=== PATIENT | male | born 1975 | race Caucasian/White ===

== ENCOUNTER 2017-01-01 09:19 | Day surgery (SDC) | payer OTHER ==
[2017-01-01] VITALS (8 sets, daily range): BP systolic 98–141; BP diastolic 51–93; PULSE 68–89; RESP 16–20; TEMP 97.7–97.9; O2SAT 93–100
[~2017-01-01] VITALS: Ht 177.8 cm; Wt 82.7 kg
[~2017-01-01 09:19] MED LIST: FLUT50SP EACH NARE; PRAV20TA2 PO; XANA2TAB PO
[2017-01-01] MEDS ORDERED: MIDAZOLAM HCL 5 MG/5 ML VIAL ONE ×2 (10:07→10:55)
[2017-01-01] MEDS ORDERED: fentaNYL CITRATE 250 MCG/5 ML AMP ONE ×2 (10:07→10:56)
[2017-01-01] MEDS ORDERED: SODIUM CHLOR 0.9% 1000 ML IV SCH (10:15)
[2017-01-01] MEDS ORDERED: LIDOCAINE 1%/EPINEPHrine 1:100,000 SOLN 20 ML VIAL ONE (10:38)
[2017-01-01] MEDS ORDERED: ALBUMIN HUMAN 25% 25 GM/100 ML BAGP IV ONE (10:45)
[2017-01-01] MEDS ORDERED: HYDROmorphone HCL 2 MG TAB PO PRN ×2 (11:15→11:30)
--- NOTE | 2017-01-01 13:54 | RADRPT ---
EXAM DATE/TIME: 01/01/2017 10:51 [facility] COMPARISON: No previous studies available for comparison. INDICATIONS : Elevated liver enzymes. SEDATION TIME: 30 minutes BIOPSY SITE: Right upper quadrant MEDICATION(S): 1.) 10 mg midazolam (Versed) IV 2.) 400 mcg fentanyl (Sublimaze) IV DEVICE(S): 1.) 18 gauge BioPince needle MEDICAL HISTORY : None. SURGICAL HISTORY : None. ENCOUNTER: Initial ACUITY: 1 day PAIN SCORE: 0/10 LOCATION: Right upper quadrant A total of one core specimen(s) were obtained and sent to the laboratory for pathologic evaluation. PROCEDURE: 1. CT guided liver biopsy. Prior to the procedure informed consent was obtained. Any appropriate prior imaging studies were rev iewed. Using automated exposure control and adjustment of the mA and/or kV according to patient size, radiat ion dose was kept as low as reasonably achievable to obtain optimal diagnostic quality images. The site was prepped in a sterile fashion. Full sterile technique was used, including cap, mask, mega rile gloves and gown and a large sterile sheet. Hand hygiene and 2% chlorhexidine and/or betadine/al cohol prep was utilized per protocol for cutaneous antisepsis. The skin and subcutaneous tissues wer e infiltrated with local anesthetic solution. With CT guidance the previously identified target was localized. Biopsy was performed using the presc ribed needle as above. Adequate hemostasis was obtained with compression at the puncture site. Follow-up CT scan reveals no hemorrhage. The patient tolerated the procedure well and there were no complications. The patient was returned to the Radiology Outpatient Unit in stable condition. CONCLUSION: Uncomplicated CT guided biopsy for function. Lam Foster MD FACR on January 01, 2017 at 13:52 Board Certified Radiologist. This report was verified electronically.
== END 2017-01-01 15:05 | disposition home or self-care (01) ==
LOC: HRAD 09:19 → HRIP 09:38 → HRAD 15:05
DX: R74.8 Abnormal levels of other serum enzymes (principal); K75.81 Nonalcoholic steatohepatitis (NASH)
CPT/HCPCS: 47000; 77012; 88307; 88313; J2250; J3010

== ENCOUNTER 2017-12-29 19:17 | Emergency (ER) | payer OTHER ==
[~2017-12-29] VITALS: Ht 177.8 cm; Wt 73.3 kg
[2017-12-29] MEDS ORDERED: GADODIAMIDE PF 287 MG/ML 5 ML VIAL (for RAD MRI) IVCONTRAST ONE (19:18)
[2017-12-29 19:21] VITALS: BP 119/59; PULSE 64; RESP 18; TEMP 98.8; O2SAT 99
[2017-12-29] MEDS ORDERED: SODIUM CHLOR 0.9% 1000 ML INJ 1,000 ML IV ONE (19:45)
[2017-12-29 19:55] VITALS: BP 139/78; PULSE 57; O2SAT 97
--- NOTE | 2017-12-29 20:00 | PD ---
HPI Chief Complaint: Numbness/Tingling Time Seen by Provider: 19:26 Travel History International Travel<30 days: No Contact w/Intl Traveler<30days: No Traveled to known affect area: No History of Present Illness HPI The patient is a 42-year-old male who presents to the emergency department for numbness and tingling to the lower legs. The patient states his symptoms started 1 week ago when he developed numbness on the right lower extremity radiate from the hip to the knee. The patient felt like the numbness was located "deep in my leg ". The patient states he then developed bilateral lower extremity numbness and tingling 1 hour prior to arrival. The patient states he goes down both lower extremities to the feet. The patient also feels like he is going to "pass out", and feels like his mentation is not clear. The patient's did call the emergency department and states that the patient has had increasing confusion and appears to be in a "fog "according to the . The patient does have a history of cirrhosis but denies any illicit drug use or alcohol use currently. He denies any fever, chills, sweats, chest pain, shortness of breath, palpitations, nausea, vomiting, or abdominal pain. The patient does take Xanax as needed for anxiety, but denies taking Xanax prior to arrival. He denies any alcohol use prior to arrival. The patient states he was able to drive to the emergency department. He denies any weakness to lower extremities and denies any urinary or fecal incontinence. Symptoms are moderate. They have been progressing. His current primary physician is Dr. Lemos. [facility] Past Medical History Bipolar Disorder: Yes Anxiety: Yes Cancer: No Cardiovascular Problems: No Diabetes: No Diminished Hearing: No Endocrine: No Genitourinary: No Hepatitis: No Hiatal Hernia: No Musculoskeletal: Yes (HX OF FX FEMUR) Neurologic: Yes (STATES HX OF MULTIPLE CONCUSSIONS) Psychiatric: No Reproductive: No Respiratory: No Thyroid Disease: No Past Surgical History Abdominal Surgery: No AICD: No Cardiac Surgery: No Ear Surgery: No Endocrine Surgery: No Eye Surgery: No Genitourinary Surgery: No Gynecologic Surgery: No Joint Replacement: No Oral Surgery: No Pacemaker: No Thoracic Surgery: No Social History Alcohol Use: Yes (2-3 TIMES A WEEK.) Tobacco Use: Yes (1PPD) Substance Use: No Allergies-Medications (Allergen,Severity, Reaction): Coded Allergies: No Known Allergies (Verified Adverse Reaction, Unknown, 12/29/17) Reported Meds & Prescriptions Reported Meds & Active Scripts Active Reported Xanax Xr 24 HR (Alprazolam) 2 Mg Tab 1 Tab PO DAILY Take tablet intact, preferably in the morning. Review of Systems Except as stated in HPI: all other systems reviewed are Neg General / Constitutional: No: Fever, Chills HENT: No: Headaches, Lightheadedness Cardiovascular: No: Chest Pain or Discomfort Respiratory: No: Shortness of Breath Gastrointestinal: No: Nausea, Vomiting, Abdominal Pain Genitourinary: No: Incontinence Musculoskeletal: No: Myalgias, Arthralgias, Weakness Neurologic: Positive: Change in Mentation, Paresthesia, Sensory Disturbance, No : Focal Abnormalities, Headache Physical Exam Narrative GENERAL: Awake, alert, somewhat confused 42-year-old male who appears his stated age and is in no acute respiratory distress. SKIN: Focused skin assessment warm/dry. HEAD: Atraumatic. Normocephalic. EYES: Pupils equal and round. Pupils are 3 mm bilateral and reactive. EOMs are intact. ENT: No nasal bleeding or discharge. Mucous membranes pink and moist. NECK: Trachea midline. No JVD. No meningeal signs. CARDIOVASCULAR: Regular rate and rhythm. No murmur appreciated. Heart rate in the 70s. RESPIRATORY: No accessory muscle use. Clear to auscultation. Breath sounds equal bilaterally. GASTROINTESTINAL: Abdomen soft, non-tender, nondistended. No rebound tenderness. MUSCULOSKELETAL: No obvious deformities. No clubbing. No cyanosis. No edema. Flexion of the great toes bilateral 5 out of 5. Plantarflexion is 5 out of 5. Dorsiflexion is 5 out of 5. Extension of knees bilateral is 5 out of 5. Flexion the hips bilaterally is 5 out of 5. Positive dorsalis pedal pulses. Examination of the patient's great nails on the toes bilaterally reveals thickened and discolored distal one half the nail, however, the new nail on the proximal one half appears clear. NEUROLOGICAL: Awake and alert. No obvious cranial nerve deficits. Motor grossly within normal limits. Normal speech. Patient is oriented to person and place, but did not know the current month or resource development director. He was able to tell me the correct year. Knee DTRs are 2+ and symmetric. Ankle DTRs are 2+ and symmetric. Babinski is downward, sensation is intact to soft touch lower extremities bilaterally. When attempting exam for clonus, afterwards, the patient's right upper leg which shakes several times and stop. Back: No tenderness over the thoracic spine, mild tenderness mid lumbar spine. PSYCHIATRIC: Appears confused. Data Data Last Documented VS Vital Signs Date Time Temp Pulse Resp B/P (MAP) Pulse Ox O2 Delivery O2 Flow Rate FiO2 12/29/17 22:47 111/61 (78) 12/29/17 19:55 57 16 97 Room Air 12/29/17 19:21 98.8 Orders Orders Complete Blood Count With Diff (12/29/17 19:39) Comprehensive Metabolic Panel (12/29/17 19:39) Ct Brain W/O Iv Contrast(Rout) (12/29/17 ) Ammonia (12/29/17 19:39) Troponin I (12/29/17 19:39) Creatine Kinase (Cpk) (12/29/17 19:39) Electrocardiogram (12/29/17 ) Thyroid Stimulating Hormone (12/29/17 19:39) Sodium Chlor 0.9% 1000 Ml Inj (Ns 1000 M (12/29/17 19:45) Drug Screen, Random Urine (12/29/17 20:20) Alcohol (Ethanol) (12/29/17 19:58) Mri L Spine W/O Contrast (12/29/17 ) Mri Brain W&W/O Contrast (12/29/17 ) Gadodiamide Pf Inj (Omniscan Pf Inj) (12/29/17 19:18) Thiamine (Vit B1) (Vitamin B1) (12/29/17 22:30) Labs Laboratory Tests Test 12/29/17 19:58 12/29/17 20:32 White Blood Count 2.6 TH/MM3 Red Blood Count 3.61 MIL/MM3 Hemoglobin 12.4 GM/DL Hematocrit 36.6 % Mean Corpuscular Volume 101.5 FL Mean Corpuscular Hemoglobin 34.4 PG Mean Corpuscular Hemoglobin Concent 33.9 % Red Cell Distribution Width 13.6 % Platelet Count 147 TH/MM3 Mean Platelet Volume 6.7 FL Neutrophils (%) (Auto) 23.7 % Lymphocytes (%) (Auto) 66.6 % Monocytes (%) (Auto) 5.0 % Eosinophils (%) (Auto) 2.3 % Basophils (%) (Auto) 2.4 % Neutrophils # (Auto) 0.6 TH/MM3 Lymphocytes # (Auto) 1.6 TH/MM3 Monocytes # (Auto) 0.1 TH/MM3 Eosinophils # (Auto) 0.1 TH/MM3 Basophils # (Auto) 0.1 TH/MM3 CBC Comment AUTO DIFF Differential Total Cells Counted 100 Neutrophils % (Manual) 27 % Lymphocytes % 66 % Monocytes % 5 % Eosinophils % 2 % Neutrophils # (Manual) 0.7 TH/MM3 Differential Comment FINAL DIFF MANUAL Platelet Estimate LOW Platelet Morphology Comment NORMAL Blood Urea Nitrogen 17 MG/DL Creatinine 0.91 MG/DL Random Glucose 92 MG/DL Total Protein 7.6 GM/DL Albumin 4.1 GM/DL Calcium Level 8.6 MG/DL Alkaline Phosphatase 41 U/L Aspartate Amino Transf (AST/SGOT) 12 U/L Alanine Aminotransferase (ALT/SGPT) 21 U/L Total Bilirubin 0.7 MG/DL Sodium Level 142 MEQ/L Potassium Level 3.7 MEQ/L Chloride Level 109 MEQ/L Carbon Dioxide Level 27.3 MEQ/L Anion Gap 6 MEQ/L Estimat Glomerular Filtration Rate 92 ML/MIN Ammonia LESS THAN 10 MCMOL/L Total Creatine Kinase 117 U/L Troponin I LESS THAN 0.02 NG/ML Thyroid Stimulating Hormone 3rd Gen 1.170 uIU/ML Ethyl Alcohol Level LESS THAN 3 MG/DL Urine Opiates Screen NEG Urine Barbiturates Screen NEG Urine Amphetamines Screen NEG Urine Benzodiazepines Screen POS Urine Cocaine Screen NEG Urine Cannabinoids Screen NEG MDM Medical Decision Making Medical Screen Exam Complete: Yes Emergency Medical Condition: Yes Medical Record Reviewed: Yes Interpretation(s) EKG reveals sinus bradycardia with sinus arrhythmia. Heart rate in the 50s. RSR prime V1. Last Impressions Lumbar Spine MRI 12/29/17 0000 Signed Impressions: Service Date/Time: Friday, December 29, 2017 21:26 - CONCLUSION: Minimal disc dehydration and slight bulge at L2-3. No significant anatomic compromise. Jalil Lyons MD Head CT 12/29/17 0000 Signed Impressions: Service Date/Time: Friday, December 29, 2017 20:08 - CONCLUSION: Normal examination. Jalil Lyons MD MRI of the brain reveals normal examination Laboratory Tests Test 12/29/17 19:58 4/18/18 20:32 White Blood Count 2.6 TH/MM3 Red Blood Count 3.61 MIL/MM3 Hemoglobin 12.4 GM/DL Hematocrit 36.6 % Mean Corpuscular Volume 101.5 FL Mean Corpuscular Hemoglobin 34.4 PG Mean Corpuscular Hemoglobin Concent 33.9 % Red Cell Distribution Width 13.6 % Platelet Count 147 TH/MM3 Mean Platelet Volume 6.7 FL Neutrophils (%) (Auto) 23.7 % Lymphocytes (%) (Auto) 66.6 % Monocytes (%) (Auto) 5.0 % Eosinophils (%) (Auto) 2.3 % Basophils (%) (Auto) 2.4 % Neutrophils # (Auto) 0.6 TH/MM3 Lymphocytes # (Auto) 1.6 TH/MM3 Monocytes # (Auto) 0.1 TH/MM3 Eosinophils # (Auto) 0.1 TH/MM3 Basophils # (Auto) 0.1 TH/MM3 CBC Comment AUTO DIFF Differential Total Cells Counted 100 Neutrophils % (Manual) 27 % Lymphocytes % 66 % Monocytes % 5 % Eosinophils % 2 % Neutrophils # (Manual) 0.7 TH/MM3 Differential Comment FINAL DIFF MANUAL Platelet Estimate LOW Platelet Morphology Comment NORMAL Blood Urea Nitrogen 17 MG/DL Creatinine 0.91 MG/DL Random Glucose 92 MG/DL Total Protein 7.6 GM/DL Albumin 4.1 GM/DL Calcium Level 8.6 MG/DL Alkaline Phosphatase 41 U/L Aspartate Amino Transf (AST/SGOT) 12 U/L Alanine Aminotransferase (ALT/SGPT) 21 U/L Total Bilirubin 0.7 MG/DL Sodium Level 142 MEQ/L Potassium Level 3.7 MEQ/L Chloride Level 109 MEQ/L Carbon Dioxide Level 27.3 MEQ/L Anion Gap 6 MEQ/L Estimat Glomerular Filtration Rate 92 ML/MIN Ammonia LESS THAN 10 MCMOL/L Total Creatine Kinase 117 U/L Troponin I LESS THAN 0.02 NG/ML Thyroid Stimulating Hormone 3rd Gen 1.170 uIU/ML Ethyl Alcohol Level LESS THAN 3 MG/DL Urine Opiates Screen NEG Urine Barbiturates Screen NEG Urine Amphetamines Screen NEG Urine Benzodiazepines Screen POS Urine Cocaine Screen NEG Urine Cannabinoids Screen NEG Differential Diagnosis Differential diagnosis includes tumor, encephalopathy, epidural abscess, heavy metal toxicity, hypokalemia, hypocalcemia, hypercalcemia, hyperkalemia, elevated ammonia level, substance ingestion, Warneke Korsakoff's. Narrative Course IV was established, labs are drawn and sent, and the patient was placed on cardiac telemetry monitoring and continuous pulse oximetry monitoring. EKG was ordered and interpreted. Stat CT of the brain was obtained. MRI of the brain and lumbar spine were ordered. Ammonia level and TSH were sent to lab. CT the brain was unremarkable. MRI of the lumbar spine is unremarkable. Ammonia level is normal. TSH is normal. Electrolytes are unremarkable including calcium and potassium. White count is slightly low at 2.6, hemoglobin is low with an MCV of 102, platelets are slightly low, unsure if this is related to possible alcohol use and/or HIV. Warneke Korsakoff would be another consideration of the patient's differential diagnosis, therefore, the patient was administered thiamine 100 mg orally. MRI of the brain with and without contrast reveals a normal examination. No obvious source of the patient's confusion and paresthesias. The patient was reevaluated at 11:01 AM. The patient's was in the room, she states the patient has had extensive workups over the last 3 years in regards to his neuropathy intermittent confusion. The patient is now oriented 4. He is nonfocal on exam. I will discharge the patient, with a copy of everything, but have advised him to follow -up with neurology. He may benefit from outpatient Diagnosis Primary Impression: Numbness and tingling Patient Instructions: General Instructions Additional Instructions: Take thiamine daily. Follow-up with neurology. He may benefit from outpatient heavy metal testing. Please provide the patient a copy of his MRI results and lab results at discharge. Return if symptoms worsen or progress. Med/Other Pt SpecificInfo: Prescription(s) given Scripts Thiamine (Vitamin B-1) 100 Mg Tab 100 MG PO DAILY for Nutritional Supplement for 30 Days, #30 TAB 0 Refills Prov: Shubham Cruz MD 12/29/17 Disposition: DISCHARGE HOME Condition: Stable Shubham Cruz MD Dec 29, 2017 20:00
[2017-12-29 20:02] LABS: AUTOMATED NEUTROPHIL # 0.6 TH/MM3 (1.8-7.7); BASOPHIL # 0.1 TH/MM3 (0-0.2); BASOPHIL % 2.4 % (0.0-2.0); EOSINOPHIL # 0.1 TH/MM3 (0-0.4); EOSINOPHIL % 2.3 % (0.0-4.0); HEMATOCRIT 36.6 % (39.0-51.0); HEMOGLOBIN 12.4 GM/DL (13.0-17.0); LYMPH % 66.6 % (9.0-44.0); LYMPHOCYTE # 1.6 TH/MM3 (1.0-4.8); MEAN CELL VOLUME 101.5 FL (80.0-100.0); MEAN CORPUSCULAR HEMOGLOBIN 34.4 PG (27.0-34.0); MEAN CORPUSCULAR HGB CONC 33.9 % (32.0-36.0); MEAN PLATELET VOLUME 6.7 FL (7.0-11.0); MONOCYTE # 0.1 TH/MM3 (0-0.9); NEUT % 23.7 % (16.0-70.0); PLATELET COUNT 147 TH/MM3 (150-450); RED BLOOD COUNT 3.61 MIL/MM3 (4.50-5.90); RED CELL DISTRIBUTION WIDTH 13.6 % (11.6-17.2); WHITE BLOOD COUNT 2.6 TH/MM3 (4.0-11.0)
[2017-12-29 20:13] LABS: CHLORIDE 109 MEQ/L (98-107); SODIUM (NA) 142 MEQ/L (136-145)
[2017-12-29 20:16] LABS: CALCIUM 8.6 MG/DL (8.5-10.1)
[2017-12-29 20:17] LABS: ALBUMIN 4.1 GM/DL (3.4-5.0); BICARBONATE 27.3 MEQ/L (21.0-32.0); BLOOD UREA NITROGEN 17 MG/DL (7-18); GLUCOSE,RANDOM 92 MG/DL (74-106)
[2017-12-29 20:20] LABS: ALT (GPT) 21 U/L (12-78); AST (GOT) 12 U/L (15-37); CREATININE 0.91 MG/DL (0.60-1.30); GLOMERULAR FILTRATION RATE 92 ML/MIN (>89)
[2017-12-29 20:21] LABS: LYMPHOCYTES 66 % (9-44); MONOCYTES 5 % (0-8); NEUTROPHIL # MANUAL DIFF 0.7 TH/MM3 (1.8-7.7); POLYS (SEG NEUTROPHILS) 27 % (16-70)
[2017-12-29 20:22] LABS: TOTAL BILIRUBIN ADULT 0.7 MG/DL (0.2-1.0); TOTAL PROTEIN 7.6 GM/DL (6.4-8.2)
[2017-12-29 20:23] LABS: ALKALINE PHOSPHATASE 41 U/L (45-117)
[2017-12-29 20:25] LABS: TROPONIN I LESS THAN 0.02 NG/ML (0.02-0.05)
--- NOTE | 2017-12-29 20:28 | RADRPT ---
EXAM DATE/TIME: 12/29/2017 20:08 [facility] COMPARISON: No previous studies available for comparison. INDICATIONS : Right leg numbness. RADIATION DOSE: 52.64 CTDIvol (mGy) MEDICAL HISTORY : None SURGICAL HISTORY : None. ENCOUNTER: Initial ACUITY: 1 day PAIN SCALE: 0/10 LOCATION: cranial TECHNIQUE: Multiple contiguous axial images were obtained of the head. Using automated exposure control and adj ustment of the mA and/or kV according to patient size, radiation dose was kept as low as reasonably a chievable to obtain optimal diagnostic quality images. DICOM format image data is available electro nically for review and comparison. FINDINGS: CEREBRUM: The ventricles are normal for age. No evidence of midline shift, mass lesion, hemorrhage or acute in farction. No extra-axial fluid collections are seen. POSTERIOR FOSSA: The cerebellum and brainstem are intact. The 4th ventricle is midline. The cerebellopontine angle i s unremarkable. EXTRACRANIAL: The visualized portion of the orbits is intact. SKULL: The calvaria is intact. No evidence of skull fracture. CONCLUSION: Normal examination. Jalil Lyons MD on December 29, 2017 at 20:24 Board Certified Radiologist. This report was verified electronically.
--- NOTE | 2017-12-29 21:58 | RADRPT ---
EXAM DATE/TIME: 12/29/2017 21:26 [facility] COMPARISON: No previous studies available for comparison. INDICATIONS : Myelopathy. Right upper leg numbness. MEDICAL HISTORY : None. SURGICAL HISTORY : Femur sx. ENCOUNTER: Initial ACUITY: 1 day PAIN SCORE: 5/10 LOCATION: Right femur. TECHNIQUE: Multiplanar multisequence MRI of the lumbar spine was performed without contrast. FINDINGS: The most caudal appearing lumbar vertebra is numbered as L5. VERTEBRAE: Homogeneous signal. Normal alignment. CONUS: Normal level and configuration. T12-L1: The thecal sac has a normal diameter. No evidence of disc bulge or protrusion. The neural foramina are patent bilaterally. L1-L2: The thecal sac has a normal diameter. No evidence of disc bulge or protrusion. The neural foramina are patent bilaterally. L2-L3: Slight disc dehydration. Slight annular bulge with minimal broad superimposed dorsal protrusion minim ally indenting ventral thecal sac. No canal or foraminal compromise. L3-L4: The thecal sac has a normal diameter. No evidence of disc bulge or protrusion. The neural foramina are patent bilaterally. L4-L5: The thecal sac has a normal diameter. No evidence of disc bulge or protrusion. The neural foramina are patent bilaterally. L5-S1: The thecal sac has a normal diameter. No evidence of disc bulge or protrusion. The neural foramina are patent bilaterally. CONCLUSION: Minimal disc dehydration and slight bulge at L2-3. No significant anatomic compromise. Jalil Lyons MD on December 29, 2017 at 21:54 Board Certified Radiologist. This report was verified electronically.
[2017-12-29] MEDS ORDERED: THIAMINE HCL 100 MG TAB PO ONE (22:30)
[2017-12-29 22:47] VITALS: BP 111/61
--- NOTE | 2017-12-29 22:58 | RADRPT ---
EXAM DATE/TIME: 12/29/2017 21:58 [facility] COMPARISON: CT BRAIN W/O CONTRAST, December 29, 2017, 20:08. [facility], May 2017 INDICATIONS : Prior head injury, possible mass. CONTRAST: 15 cc Omniscan (gadodiamide) IV MEDICAL HISTORY : None. SURGICAL HISTORY : Femur sx. ENCOUNTER: Initial ACUITY: 1 month PAIN SCORE: 3/10 LOCATION: Bilateral cranial TECHNIQUE: Multiplanar, multisequence MRI of the brain was performed both prior to and following the administrat ion of paramagnetic contrast. FINDINGS: CEREBRUM: The ventricles are normal for age. No evidence of midline shift, mass lesion, hemorrhage or acute in farction. No extraaxial fluid collections are seen. The pituitary gland and suprasellar cistern are normal in configuration. WHITE MATTER: No significant signal abnormalities are seen in the white matter. POSTERIOR FOSSA: The cerebellum and brainstem are intact. The 4th ventricle is midline. The cerebellopontine angle is unremarkable. The cerebellar tonsils are normal in position. DIFFUSION IMAGING: No focal areas of restricted diffusion are seen. No evidence of acute infarction. EXTRACRANIAL: The visualized portions of the orbits and paranasal sinuses are unremarkable. POST-CONTRAST: No abnormal areas of parenchymal or dural enhancement. No evidence of blood-brain barrier breakdown. CONCLUSION: Normal examination. Jalil Lyons MD on December 29, 2017 at 22:55 Board Certified Radiologist. This report was verified electronically.
[2017-12-29] MEDS ORDERED: VITA100T54 PO (23:07)
--- NOTE | 2017-12-30 13:27 | EKG ---
Date Performed: 12/29/2017 Time Performed: 19:57:14 PTAGE: 42 years EKG: SINUS BRADYCARDIA WITH SINUS ARRHYTHMIA POSSIBLE RIGHT VENTRICULAR CONDUCTION DELAY BORDERL INE ECG NO PREVIOUS TRACING DOCTOR: Jamshid Webster Interpretating Date/Time 12/30/2017 13:24:56
== END 2017-12-29 23:34 | disposition home or self-care (01) ==
LOC: PHED 19:17
DX: R20.0 Anesthesia of skin (principal); R20.2 Paresthesia of skin; F19.10 Other psychoactive substance abuse, uncomplicated; R00.1 Bradycardia, unspecified; I49.8 Other specified cardiac arrhythmias; F31.9 Bipolar disorder, unspecified; F41.9 Anxiety disorder, unspecified; F17.200 Nicotine dependence, unspecified, uncomplicated; Z79.899 Other long term (current) drug therapy
CPT/HCPCS: 70450; 70553; 72148; 80053; 80307; 82140; 82550; 84443; 84484; 85007; 85027; 93005; 96360; 99285; A9579; J7030